=== PATIENT | female | born 1970 | race Caucasian/White ===

== ENCOUNTER 2024-11-16 07:33 | Outpatient (CLI) | payer MEDICAID, SELFPAY ==
--- NOTE | 2024-11-16 07:36 | US_ITS ---
FINAL REPORT CLINICAL HISTORY: ABNORMAL MAMM // DR. NATALIE ANTOINE // RT BREAST MASS // 1000 7 CMFN FINDINGS: ULTRASOUND-GUIDED RIGHT BREAST CORE BIOPSY TECHNIQUE: Limited images were obtained to localize region of interest. The right breast was prepped in a routine sterile fashion and locally anesthetized with 1% lidocaine. Standard written informed consent was obtained. An irregular shadowing lesion in the right upper outer quadrant at 10:00 measuring 7 mm was noted. An 11-gauge vacuum assisted hand-held device was utilized. The needle was positioned posterior to the lesion. Multiple vacuum assisted core samples were obtained. The lesion was noted to be significantly smaller following biopsy. A biopsy marker clip was deployed in satisfactory position. Postbiopsy mammogram showed postbiopsy changes with clip in satisfactory position. Procedure was well tolerated . CONCLUSION: 1. Technically successful ultrasound guided vacuum assisted core biopsy of right breast lesion as above. 2. Biopsy marker clip deployed Authenticated and ERN
--- NOTE | 2024-11-16 08:38 | MM_ITS ---
FINAL REPORT CLINICAL HISTORY: .S/P BX CLIP PLACEMENT FINDINGS: MAMMOGRAM RIGHT TECHNIQUE: Standard digital 2-D views COMPARISON: 09/19/2024 and 07/29/2023 DENSITY: There are scattered areas of fibroglandular density FINDINGS: Post biopsy marker clip is noted to be in satisfactory position. Postbiopsy changes are noted. It should be noted the lesion of interest was not visualized mammographically on pre-biopsy imaging. IMPRESSION: Biopsy marker clip in good position ASSESSMENT: A post-procedure mammogram is used to confirm the position and deployment of a breast tissue marker after a biopsy RECOMMENDATION: Pending histopathology evaluation Authenticated and ERN
== END 2024-11-16 23:59 | disposition home or self-care (01) ==
LOC: RAD 07:34
PROVIDERS: PCP Family Medicine; Visit Provider Nurse Practitioner
DX: R92.8 Other abnormal and inconclusive findings on diagnostic imaging of breast (principal)
CPT/HCPCS: 19083; 77065; C2618